=== PATIENT | female | born 1995 | race Caucasian/White ===

== ENCOUNTER 2021-10-01 20:14 | Emergency (ER) | payer OTHER ==
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
[2021-10-01] MEDS ORDERED: TYLENOL 325 MG PO ONE (20:50)
[2021-10-01] MEDS ORDERED: TYLENOL 325 MG ONE (20:52)
[2021-10-01] MEDS ORDERED: NORCO 5/325 MG ONE (20:54)
[2021-10-01] MEDS ORDERED: NORCO 5/325 MG PO ONE (20:54)
[2021-10-01] MEDS ORDERED: Tessalon Perles 100 MG PO ONE ×2 (22:07→22:08)
[2021-10-01 22:08] VITALS: BP 109/55; PULSE 117
[2021-10-01 22:18] VITALS: O2SAT 97
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
== END 2021-10-01 22:34 | disposition home or self-care (01) ==
LOC: ED 20:14
DX: S00.83XA Contusion of other part of head, initial encounter (principal); S20.214A Contusion of middle front wall of thorax, initial encounter; V48.5XXA Car driver injured in noncollision transport accident in traffic accident, initial encounter; R59.1 Generalized enlarged lymph nodes; R05.3 Chronic cough; U09.9 Post COVID-19 condition, unspecified; R51.9 Headache, unspecified; R07.9 Chest pain, unspecified; Z79.899 Other long term (current) drug therapy
CPT/HCPCS: 70450; 71046; 72125; 99285; A9270-GY

== ENCOUNTER 2021-10-02 00:12 | Emergency (ER) | payer OTHER ==
[2021-10-02] MEDS ORDERED: Sodium Chloride 0.9% 1000 ML 1,000 ML IV STA (00:37)
[2021-10-02] MEDS ORDERED: Sodium Chloride 0.9% 1000 ML 1,000 ML ONE (00:42)
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
[2021-10-02 00:52] LABS: Hematocrit 27.2 % (35-47); Hemoglobin 8.1 gm/dl (12.0-16.0); Mean Cell Volume 85.8 fl (78-100); Mean Corpuscular Hemoglobin 25.6 pg (26-32); Mean Corpuscular Hgb Concent. 29.8 g/dl (32-36); Mean Platelet Volume 9.1 fl (7.5-11.0); Platelet Count 460 K/mm3 (150-450); Red Blood Count 3.17 M/mm3 (4.1-5.4); Red Cell Distribution Width 19.1 % (11.5-14.0)
[2021-10-02 01:01] LABS: White Blood Count 28.3 K/mm3 (4.0-10.5)
[2021-10-02 01:10] LABS: ANION GAP 11.5 MEQ/L (5-15); BLOOD UREA NITROGEN 8 mg/dL (7-17); CHLORIDE 98 mmol/L (98-107); Calcium 8.3 mg/dL (8.4-10.2); Carbon Dioxide 27 mmol/L (22-30); Creatinine 1 0.92 mg/dL (0.52-1.04); EST GLOMERULAR FILTRATION RATE > 60.0 ML/MIN; Glucose 147 mg/dL (74-106); Potassium 3.8 mmol/L (3.5-5.1); SODIUM 133 mmol/L (137-145)
[2021-10-02] MEDS ORDERED: TORAdol 30 mg Injection IV ONE (01:20)
[2021-10-02] MEDS ORDERED: TORAdol 30 mg Injection ONE (01:22)
[2021-10-02 01:23] LABS: TROPONIN < 0.012 ng/mL (0.000-0.034)
[2021-10-02 01:54] LABS: BAND 8 % (0.0-2.0); Eosinophil 1 % (0.00-3.0); Hypochromia 1+; Lymphocytes 7 % (24-44); Monocyte 5 % (0.0-12.0); Neutrophils 79 % (36.0-66.0); Platelet Estimate NORMAL (NORMAL); Polychromasia 1+; Total Cells Counted 100; Toxic Granulation 1+
[2021-10-02 02:15] VITALS: O2SAT 95
[2021-10-02 03:13] VITALS: BP 100/45; PULSE 103
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
== END 2021-10-02 03:05 | disposition home or self-care (01) ==
LOC: ED 00:12
DX: R55 Syncope and collapse (principal); R05.3 Chronic cough; D72.829 Elevated white blood cell count, unspecified; G47.30 Sleep apnea, unspecified; S22.32XA Fracture of one rib, left side, initial encounter for closed fracture; V48.5XXA Car driver injured in noncollision transport accident in traffic accident, initial encounter; Z86.16 Personal history of COVID-19; Z79.899 Other long term (current) drug therapy; Z79.891 Long term (current) use of opiate analgesic
CPT/HCPCS: 36000; 36415; 71260; 80048; 84484; 84703; 85025; 85379; 93005; 96360; 96374; 99284; J1885

== ENCOUNTER 2022-02-14 15:12 | Emergency (ER) | payer OTHER ==
--- NOTE | 2022-02-14 15:15 | ERPHSYRPT ---
- History of Present Illness Time Seen by Provider: 02/14/22 15:14 Source: patient Exam Limitations: no limitations Physician History: This is a 27-year-old white female who has Hodgkin's lymphoma. She receives chemotherapy through a port tomorrow. Her concern, is that she might be dehydrated. They are having trouble accessing her port and therefore she is here to receive a liter of normal saline intravenously. Patient has no chest pain. She has no shortness of breath. She has not been vomiting. She has not had any diarrhea. Her oral intake is not the best. Timing/Duration: today Severity: mild Associated Symptoms: loss of appetite Allergies/Adverse Reactions: amoxicillin Allergy (Intermediate, Verified 02/14/22 15:45) Rash cefaclor [From Ceclor] Allergy (Intermediate, Verified 02/14/22 15:45) Rash Home Medications: AMITRIPTYLINE HCL 50 mg Tab [AMITRIPTYLINE HCL 50 mg Tablet] 50 mg PO HS 10/01/21 [History] Buspirone HCl 15 mg PO BID 10/01/21 [History] Escitalopram Oxalate [Lexapro] 30 mg PO DAILY 10/01/21 [History] Gabapentin [Neurontin] 800 mg PO BID 10/01/21 [History] Montelukast Sodium 10 mg [Singulair 10 MG] 10 mg PO DAILY 10/01/21 [History] Hx Tetanus, Diphtheria Vaccination/Date Given: Yes (2020) Hx Influenza Vaccination/Date Given: No Hx Pneumococcal Vaccination/Date Given: No Travel Risk - International Travel Have you traveled outside of the country in past 3 weeks: No - Coronavirus Screening Are you exhibiting any of the following symptoms?: No - Vaccine Status Have you recieved a Covid-19 vaccination: No 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: 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 - Vaccination Dates Date of 2cond Vaccination (if applicable): mar 2021 - Review of Systems Constitutional: No Symptoms Eyes: No Symptoms Ears, Nose, & Throat: No Symptoms Respiratory: No Symptoms Cardiac: No Symptoms Abdominal/Gastrointestinal: Appetite Changes Genitourinary Symptoms: No Symptoms Musculoskeletal: No Symptoms Skin: No Symptoms Neurological: No Symptoms Psychological: No Symptoms Endocrine: No Symptoms Hematologic/Lymphatic: No Symptoms Immunological/Allergic: No Symptoms All Other Systems: Reviewed and Negative - Past Medical History Pertinent Past Medical History: Yes Psycho-Social History: Anxiety Other Medical History: testing for hodgkins lymphoma. exzema, insulin resistant - Past Surgical History Past Surgical History: Yes Other Surgical History: cyst removal - Social History Smoking Status: Never smoker Exposure to second hand smoke: No Drug Use: none Patient Lives Alone: No - Nursing Vital Signs Nursing Vital Signs: Initial Vital Signs Temperature 97.0 F 02/14/22 15:26 Pulse Rate 97 H 02/14/22 15:26 Respiratory Rate 18 02/14/22 15:26 Blood Pressure 115/58 02/14/22 15:26 O2 Sat by Pulse Oximetry 100 02/14/22 15:26 Pain Scale Pain Intensity 7 - Physical Exam General Appearance: no apparent distress, alert Eye Exam: PERRL/EOMI, eyes nml inspection Ears, Nose, Throat Exam: normal ENT inspection, dry mucous membranes Neck Exam: normal inspection, non-tender, supple, full range of motion Respiratory Exam: normal breath sounds, lungs clear, airway intact, No chest tenderness, No respiratory distress Cardiovascular Exam: regular rate/rhythm, normal heart sounds, normal peripheral pulses Gastrointestinal/Abdomen Exam: soft, normal bowel sounds, No tenderness Pelvic Exam: not done Rectal Exam: not done Back Exam: normal inspection, normal range of motion, No CVA tenderness Extremity Exam: normal inspection, normal range of motion, pelvis stable Neurologic Exam: alert, oriented x 3, cooperative, 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9% 1000 Ml IV 02/14/22 17:12 999 mls/hr .Q1H1M STA Administration Discontinued Medications Generic Name Dose Route Start Last Admin Trade Name Freq PRN Reason Stop Dose Admin Sodium Chloride Confirm 02/14/22 16:15 Sodium Chloride 0.9% 1000 Ml Administered 02/14/22 16:16 Dose 1,000 mls @ ud .ROUTE .STK-MED ONE - Progress Progress: improved Counseled pt/family regarding: lab results, diagnosis, need for follow-up - Departure Departure Disposition: Home Clinical Impression: Mild dehydration Condition: Stable Critical Care Time: No Referrals: RAJ CHANEY MD [Primary Care Provider] - Follow up/PCP as directed Additional Instructions: Drink plenty of fluids. Take your medication as prescribed. Keep your chemotherapy infusion appointment tomorrow
[2022-02-14] MEDS ORDERED: Sodium Chloride 0.9% 1000 ML 1,000 ML IV STA (16:12)
[2022-02-14] MEDS ORDERED: Sodium Chloride 0.9% 1000 ML 1,000 ML ONE (16:15)
[2022-02-14 16:35] LABS: ANION GAP 11.8 MEQ/L (5-15); BLOOD UREA NITROGEN 18 mg/dL (7-17); CHLORIDE 101 mmol/L (98-107); Calcium 9.3 mg/dL (8.4-10.2); Carbon Dioxide 27 mmol/L (22-30); Creatinine 1 0.67 mg/dL (0.52-1.04); EST GLOMERULAR FILTRATION RATE > 60.0 ML/MIN; Glucose 87 mg/dL (74-106); Potassium 4.3 mmol/L (3.5-5.1); SODIUM 136 mmol/L (137-145)
[2022-02-14 17:50] VITALS: BP 125/74; PULSE 92; O2SAT 99
== END 2022-02-14 17:53 | disposition home or self-care (01) ==
LOC: ED 15:12
DX: E86.0 Dehydration (principal); C81.90 Hodgkin lymphoma, unspecified, unspecified site; Z79.899 Other long term (current) drug therapy
CPT/HCPCS: 36000; 36415; 80048; 96360; 99284

== ENCOUNTER 2022-05-05 09:58 | Emergency (ER) | payer OTHER ==
--- NOTE | 2022-05-05 11:25 | ERPHSYRPT ---
- History of Present Illness Source: patient Exam Limitations: no limitations Patient Subjective Stated Complaint: C/O dizziness that resulted in a fall this morning. Patient states that she has been having dizzy spells since approx January but today is the first day that she has fallen related to the dizziness. Patient states that the room is spinning when questioned about the spinning. Triage Nursing Assessment: Patient ambulated back to ED with a slow gait. Patient did become slightly dizzy when guided back to ED. No SOB. Noted small spots to body when assessing skin that patient indicates are from her chemotherapy. Noted ulcer to great toe as well. Physician History: 27 yo wf who had her last chemo treatment for Hodgkins disease last week presents s/p fall x2 today due to being lightheaded. Pt states that she has been lightheaded x 8months. She denies LOC but does have a headache. Pt has chronic dyspnea upon exertion but denies cough/chest pain/fever. She has no focal weakness and denies any acute injury. Occurred: this morning Reason for Fall: lightheaded Injuries/Pain Location: head (Has a BARRY) Loss of Consciousness: no loss of consciousness Quality: aching Severity of Pain-Max: mild Severity of Pain-Current: mild Modifying Factors: Improves With: nothing Associated Symptoms (Fall): denies symptoms, shortness of breath Allergies/Adverse Reactions: amoxicillin Allergy (Intermediate, Verified 05/05/22 10:37) Rash cefaclor [From Ceclor] Allergy (Intermediate, Verified 05/05/22 10:37) Rash Home Medications: Amitriptyline HCl 25 mg [Amitriptyline 25 mg Tablet] 100 mg PO DAILY 05/05/22 [History] Aspirin EC 81 mg [Ecotrin 81 mg] 1 tab PO DAILY 05/05/22 [History] Buspirone HCl 5 mg [Buspar 5 mg] 15 mg PO BID 05/05/22 [History] Escitalopram Oxalate [Lexapro] 20 mg PO DAILY 05/05/22 [History] Gabapentin [Neurontin ] 1,600 mg PO HS 05/05/22 [History] hydroCHLOROthiazide [Hydrochlorothiazide] 1 tab PO DAILY 05/05/22 [History] Hx Tetanus, Diphtheria Vaccination/Date Given: Yes Hx Influenza Vaccination/Date Given: No Hx Pneumococcal Vaccination/Date Given: No Immunizations Up to Date: Yes Travel Risk - International Travel Have you traveled outside of the country in past 3 weeks: No - Coronavirus Screening Are you exhibiting any of the following symptoms?: No Close contact with a COVID-19 positive Pt in past 14-21 Days: No - Vaccine Status Have you recieved a Covid-19 vaccination: No International Guest Coordinator: Moderna - Vaccination Dates Date of 2cond Vaccination (if applicable): mar 2021 - Review of Systems Constitutional: No Symptoms, Malaise Eyes: No Symptoms Ears, Nose, & Throat: No Symptoms Respiratory: No Symptoms, Dyspnea on Exertion (LENTZ) Cardiac: No Symptoms Abdominal/Gastrointestinal: No Symptoms Genitourinary Symptoms: No Symptoms Musculoskeletal: No Symptoms Skin: No Symptoms Neurological: No Symptoms Psychological: No Symptoms Endocrine: No Symptoms Hematologic/Lymphatic: No Symptoms Immunological/Allergic: No Symptoms - Past Medical History Pertinent Past Medical History: Yes Respiratory History: COPD Psycho-Social History: Anxiety, Depression Other Medical History: Hodgkins Lymphoma in remission since March 2022 - Past Surgical History Past Surgical History: Yes Other Surgical History: cyst removal, port placement X 3 - Social History Smoking Status: Never smoker Exposure to second hand smoke: No Drug Use: none Patient Lives Alone: No Significant Family History: no pertinent family hx - Female History Hx Last Menstrual Period: 4 months ago Hx Now: No - Nursing Vital Signs Nursing Vital Signs: Initial Vital Signs Temperature 97.6 F 05/05/22 10:38 Pulse Rate 90 05/05/22 10:38 Respiratory Rate 20 05/05/22 10:38 Blood Pressure 122/77 05/05/22 10:38 O2 Sat by Pulse Oximetry 96 05/05/22 10:38 Pain Scale Pain Intensity 0 WNL - Vini Coma Score Best Eye Response (Vini): (4) open spontaneously Best Verbal Response ([place]): (5) oriented Best Motor Response (Vini): (6) obeys commands [place] Total: 15 - Physical Exam General Appearance: no apparent distress Head Injury: no evidence of injury Eye Exam: PERRL/EOMI, eyes nml inspection ENT Exam: airway nml, No evidence of ENT injury Neck Exam: supple, trachea midline, full range of motion, normal alignment, normal inspection, No focal neuro deficit Respiratory/Chest Exam: normal breath sounds, No respiratory distress Cardiovascular Exam: normal heart sounds, regular rate/rhythm, normal peripheral pulses, No murmur Gastrointestinal Exam: soft, normal bowel sounds, No tenderness Back Exam: normal inspection, normal range of motion, vertebral tenderness (No T/L-spine TTP), No CVA tenderness Extremity Exam: normal inspection, normal range of motion, capillary refill <3 sec, pelvis stable Peripheral Pulses: carotid (R): 2+, carotid (L): 2+ Neurologic Exam: alert, oriented x 3, cooperative, clinical nurse specialist II-XII nml as tested, normal mood/affect, nml cerebellar function, nml station & gait, sensation nml, No motor deficits, No sensory deficit Skin Exam: normal color, warm, dry, No rash SpO2 Interpretation: normal SpO2: 96 O2 Delivery: Room Air - Course Nursing assessment & vital signs reviewed: Yes EKG Interpreted by Me: RATE (NSR/Rate79/Normal QT-QTc/No acute ST segment changes) - CT Exams Head CT Interpretation: Discussed w/radiologist (CT head neg) Chest CT Interpretation: Discussed w/radiologist (No PE/Healing sternal Fx/RUIZ) Ordered Tests: Active Orders 24 hr Category Date Time Status EKG-ER Only STAT Care 05/05/22 11:17 Completed CHEST WITH CONTRAST [CT] Stat Exams 05/05/22 12:40 Completed HEAD WITHOUT CONTRAST [CT] Stat Exams 05/05/22 11:19 Completed CBC W DIFF Stat Lab 05/05/22 11:17 Results CMP Stat Lab 05/05/22 11:40 Completed D-DIMER QUANTITATIVE Stat Lab 05/05/22 11:40 Completed HCG QUALITATIVE,SERUM Stat Lab 05/05/22 11:40 Completed Lactic Acid Stat Lab 05/05/22 11:35 Completed Manual Differential NC Stat Lab 05/05/22 11:17 Results PROTIME WITH INR Stat Lab 05/05/22 11:40 Completed PTT Stat Lab 05/05/22 11:40 Completed Pathologist Review Stat Lab 05/05/22 11:17 Results TROPONIN Q4H Lab 05/05/22 11:40 Completed TROPONIN Q4H Lab 05/05/22 14:15 Completed TROPONIN Q4H Lab 05/05/22 17:10 Completed UA W/RFX CULTURE Stat Lab 05/05/22 11:59 Completed Medication Summary Discontinued Medications Generic Name Dose Route Start Last Admin Trade Name Freq PRN Reason Stop Dose Admin Sodium Chloride 1,000 mls @ 999 mls/hr 05/05/22 12:56 05/05/22 14:17 Sodium Chloride 0.9% 1000 Ml IV 05/05/22 13:56 Infused .Q1H1M STA Infusion Sodium Chloride Confirm 05/05/22 13:05 Sodium Chloride 0.9% 1000 Ml Administered 05/05/22 13:06 Dose 1,000 mls @ ud .ROUTE .STK-MED ONE Sodium Chloride 1,000 mls @ 999 mls/hr 05/05/22 15:33 05/05/22 16:50 Sodium Chloride 0.9% 1000 Ml IV 05/05/22 16:33 Infused .Q1H1M STA Infusion Sodium Chloride Confirm 05/05/22 15:43 Sodium Chloride 0.9% 1000 Ml Administered 05/05/22 15:44 Dose 1,000 mls @ ud .ROUTE .STK-MED ONE Lab/Rad Data: Laboratory Result Diagrams 05/05/22 11:17 05/05/22 11:40 Laboratory Results 05/05/22 05/05/22 05/05/22 Range/Units 17:10 14:15 11:59 WBC (4.0-10.5) x10^3/uL RBC (4.1-5.4) x10^6/uL Hgb (12.0-16.0) g/dL Hct (35-47) % MCV (78-100) fL MCH (26-32) pg MCHC (32-36) g/dL RDW (11.5-14.0) % Plt Count (150-450) x10^3/uL MPV (7.5-11.0) fL Gran % (36.0-66.0) % Immature Gran % (Auto) (0.00-0.4) % Nucleat RBC Rel Count (0.00-0.1) % Eos # (Auto) (0-0.5) x10^3/uL Immature Gran # (Auto) (0.00-0.03) x10^3u/L Absolute Lymphs (auto) (1.0-4.6) x10^3/uL Absolute Monos (auto) (0.0-1.3) x10^3/uL Absolute Nucleated RBC (0.00-0.01) x10^3u/L Lymphocytes % (24.0-44.0) % Monocytes % (0.0-12.0) % Eosinophils % (0.00-5.0) % Basophils % (0.0-0.4) % Absolute Granulocytes (1.4-6.9) x10^3/uL Segmented Neutrophils (36.0-66.0) % Band Neutrophils (0.0-2.0) % Lymphocytes (Manual) (24-44) % Monocytes (Manual) (0.0-12.0) % Basophils # (0-0.4) x10^3/uL Metamyelocytes % Myelocytes % Nucleated RBCs % Blast Cells % Hypochromia Toxic Granulation Basophilic Stippling Anisocytosis Smear Path Review PT (9.4-12.5) SECONDS INR (0.8-3.0) APTT (25.1-36.5) SECONDS D-Dimer (0.0-0.50) mg/L Sodium (137-145) mmol/L Potassium (3.5-5.1) mmol/L Chloride (98-107) mmol/L Carbon Dioxide (22-30) mmol/L Anion Gap (5-15) MEQ/L BUN (7-17) mg/dL Creatinine (0.52-1.04) mg/dL Estimated GFR ML/MIN Glucose (74-106) mg/dL Lactic Acid (0.4-2.0) Calcium (8.4-10.2) mg/dL Total Bilirubin (0.2-1.3) mg/dL AST (14-36) U/L ALT (0-35) U/L Alkaline Phosphatase (38-126) U/L Troponin I 0.058 H* 0.064 H* (0.000-0.034) ng/mL Serum Total Protein (6.3-8.2) g/dL Albumin (3.5-5.0) g/dL Serum , Qual (Negative) Urinalys Dipstick Clnc MAIN LAB Urine Color YELLOW (YELLOW) Urine Appearance CLEAR (CLEAR) Urine pH 6.5 (5-6) Ur Specific [place] 1.020 (1.005-1.025) POC Urine Protein Conf NEGATIVE (Negative) Urine Ketones NEGATIVE (NEGATIVE) Urine Nitrite NEGATIVE (NEGATIVE) Urine Bilirubin NEGATIVE (NEGATIVE) Urine Urobilinogen 0.2 (0-1) mg/dL Urine Leukocytes NEGATIVE (NEGATIVE) Urine WBC (Auto) 0-2 (0-5) /HPF Urine RBC (Auto) NONE (0-2) /HPF U Epithel Cells (Auto) NONE (FEW) /HPF Urine Bacteria (Auto) RARE (NEGATIVE) /HPF Urine RBC NEGATIVE (0-5) Myles/ul Urine Mucus (Auto) SLIGHT (NEGATIVE) /HPF Ur Culture Indicated? NO Urine Glucose NEGATIVE (NEGATIVE) mg/dL 05/05/22 05/05/22 05/05/22 Range/Units 11:40 11:40 11:40 WBC (4.0-10.5) x10^3/uL RBC (4.1-5.4) x10^6/uL Hgb (12.0-16.0) g/dL Hct (35-47) % MCV (78-100) fL MCH (26-32) pg MCHC (32-36) g/dL RDW (11.5-14.0) % Plt Count (150-450) x10^3/uL MPV (7.5-11.0) fL Gran % (36.0-66.0) % Immature Gran % (Auto) (0.00-0.4) % Nucleat RBC Rel Count (0.00-0.1) % Eos # (Auto) (0-0.5) x10^3/uL Immature Gran # (Auto) (0.00-0.03) x10^3u/L Absolute Lymphs (auto) (1.0-4.6) x10^3/uL Absolute Monos (auto) (0.0-1.3) x10^3/uL Absolute Nucleated RBC (0.00-0.01) x10^3u/L Lymphocytes % (24.0-44.0) % Monocytes % (0.0-12.0) % Eosinophils % (0.00-5.0) % Basophils % (0.0-0.4) % Absolute Granulocytes (1.4-6.9) x10^3/uL Segmented Neutrophils (36.0-66.0) % Band Neutrophils (0.0-2.0) % Lymphocytes (Manual) (24-44) % Monocytes (Manual) (0.0-12.0) % Basophils # (0-0.4) x10^3/uL Metamyelocytes % Myelocytes % Nucleated RBCs % Blast Cells % Hypochromia Toxic Granulation Basophilic Stippling Anisocytosis Smear Path Review PT 10.4 (9.4-12.5) SECONDS INR 0.98 (0.8-3.0) APTT 21.5 L (25.1-36.5) SECONDS D-Dimer 0.73 H* (0.0-0.50) mg/L Sodium (137-145) mmol/L Potassium (3.5-5.1) mmol/L Chloride (98-107) mmol/L Carbon Dioxide (22-30) mmol/L Anion Gap (5-15) MEQ/L BUN (7-17) mg/dL Creatinine (0.52-1.04) mg/dL Estimated GFR ML/MIN Glucose (74-106) mg/dL Lactic Acid (0.4-2.0) Calcium (8.4-10.2) mg/dL Total Bilirubin (0.2-1.3) mg/dL AST (14-36) U/L ALT (0-35) U/L Alkaline Phosphatase (38-126) U/L Troponin I 0.062 H* (0.000-0.034) ng/mL Serum Total Protein (6.3-8.2) g/dL Albumin (3.5-5.0) g/dL Serum , Qual NEGATIVE (Negative) Urinalys Dipstick Clnc Urine Color (YELLOW) Urine Appearance (CLEAR) Urine pH (5-6) Ur Specific [place] (1.005-1.025) POC Urine Protein Conf (Negative) Urine Ketones (NEGATIVE) Urine Nitrite (NEGATIVE) Urine Bilirubin (NEGATIVE) Urine Urobilinogen (0-1) mg/dL Urine Leukocytes (NEGATIVE) Urine WBC (Auto) (0-5) /HPF Urine RBC (Auto) (0-2) /HPF U Epithel Cells (Auto) (FEW) /HPF Urine Bacteria (Auto) (NEGATIVE) /HPF Urine RBC (0-5) Myles/ul Urine Mucus (Auto) (NEGATIVE) /HPF Ur Culture Indicated? Urine Glucose (NEGATIVE) mg/dL 05/05/22 05/05/22 05/05/22 Range/Units 11:40 11:35 11:17 WBC 37.2 H* (4.0-10.5) x10^3/uL RBC 2.95 L (4.1-5.4) x10^6/uL Hgb 8.7 L (12.0-16.0) g/dL Hct 28.3 L (35-47) % MCV 95.9 (78-100) fL MCH 29.5 (26-32) pg MCHC 30.7 L (32-36) g/dL RDW 21.3 H (11.5-14.0) % Plt Count 140 L (150-450) x10^3/uL MPV 11.2 H (7.5-11.0) fL Gran % 68.0 H (36.0-66.0) % Immature Gran % (Auto) 23.7 H (0.00-0.4) % Nucleat RBC Rel Count 0.9 H (0.00-0.1) % Eos # (Auto) 0 (0-0.5) x10^3/uL Immature Gran # (Auto) 8.82 H (0.00-0.03) x10^3u/L Absolute Lymphs (auto) 1.10 (1.0-4.6) x10^3/uL Absolute Monos (auto) 1.92 H (0.0-1.3) x10^3/uL Absolute Nucleated RBC 0.34 H (0.00-0.01) x10^3u/L Lymphocytes % 3.0 L (24.0-44.0) % Monocytes % 5.2 (0.0-12.0) % Eosinophils % 0.0 (0.00-5.0) % Basophils % 0.1 (0.0-0.4) % Absolute Granulocytes 25.30 H (1.4-6.9) x10^3/uL Segmented Neutrophils 74 H (36.0-66.0) % Band Neutrophils 8 H (0.0-2.0) % Lymphocytes (Manual) 9 L (24-44) % Monocytes (Manual) 4 (0.0-12.0) % Basophils # 0.03 (0-0.4) x10^3/uL Metamyelocytes 2 % Myelocytes 1 % Nucleated RBCs 2 % Blast Cells 2 % Hypochromia 1+ Toxic Granulation 1+ Basophilic Stippling 1+ Anisocytosis 3+ Smear Path Review Pending PT (9.4-12.5) SECONDS INR (0.8-3.0) APTT (25.1-36.5) SECONDS D-Dimer (0.0-0.50) mg/L Sodium 137 (137-145) mmol/L Potassium 4.1 (3.5-5.1) mmol/L Chloride 99 (98-107) mmol/L Carbon Dioxide 35 H (22-30) mmol/L Anion Gap 7.0 (5-15) MEQ/L BUN 23 H (7-17) mg/dL Creatinine 0.86 (0.52-1.04) mg/dL Estimated GFR > 60.0 ML/MIN Glucose 118 H (74-106) mg/dL Lactic Acid 1.3 (0.4-2.0) Calcium 9.3 (8.4-10.2) mg/dL Total Bilirubin 0.30 (0.2-1.3) mg/dL AST 23 (14-36) U/L ALT 25 (0-35) U/L Alkaline Phosphatase 129 H (38-126) U/L Troponin I (0.000-0.034) ng/mL Serum Total Protein 6.7 (6.3-8.2) g/dL Albumin 4.0 (3.5-5.0) g/dL Serum , Qual (Negative) Urinalys Dipstick Clnc Urine Color (YELLOW) Urine Appearance (CLEAR) Urine pH (5-6) Ur Specific [place] (1.005-1.025) POC Urine Protein Conf (Negative) Urine Ketones (NEGATIVE) Urine Nitrite (NEGATIVE) Urine Bilirubin (NEGATIVE) Urine Urobilinogen (0-1) mg/dL Urine Leukocytes (NEGATIVE) Urine WBC (Auto) (0-5) /HPF Urine RBC (Auto) (0-2) /HPF U Epithel Cells (Auto) (FEW) /HPF Urine Bacteria (Auto) (NEGATIVE) /HPF Urine RBC (0-5) Myles/ul Urine Mucus (Auto) (NEGATIVE) /HPF Ur Culture Indicated? Urine Glucose (NEGATIVE) mg/dL - Progress Progress: improved Progress Note: 05/05/22 18:[address] Paul, pt's oncologist, near-syncope most likely due to orthostatic hypotension due to pt's treatment. Leukocytosis due to prednisone treatment. 05/05/22 18:19 05/05/22 21:46 Pt w mildly elevated troponin but not elevating x3. Heart score 2. Counseled pt/family regarding: lab results, diagnosis, need for follow-up, rad results - Departure Departure Disposition: Home Clinical Impression: Near syncope Condition: Stable Critical Care Time: No Referrals: RAJ CHANEY MD [Primary Care Provider] - Follow up/PCP as directed Instructions: Syncope (Fainting) (DC) Additional Instructions: Follow up with Dr. Paul on Sunday Return to ER for chest pain, shortness of breath, focal weakness, or temperature greater than 100.5
[2022-05-05 11:38] LABS: Basophil (Absolute #) 0.03 x10^3/uL (0-0.4); Eosinophil (Absolute #) 0 x10^3/uL (0-0.5); Hematocrit 28.3 % (35-47); Hemoglobin 8.7 g/dL (12.0-16.0); Mean Cell Volume 95.9 fL (78-100); Mean Corpuscular Hemoglobin 29.5 pg (26-32); Mean Corpuscular Hgb Concent. 30.7 g/dL (32-36); Mean Platelet Volume 11.2 fL (7.5-11.0); Monocyte (Absolute #) 1.92 x10^3/uL (0.0-1.3); Monocytes % 5.2 % (0.0-12.0); Platelet Count 140 x10^3/uL (150-450); Red Blood Count 2.95 x10^6/uL (4.1-5.4); Red Cell Distribution Width 21.3 % (11.5-14.0)
[2022-05-05 11:46] LABS: White Blood Count 37.2 x10^3/uL (4.0-10.5)
[2022-05-05 11:52] LABS: ALKALINE PHOSPHATASE 129 U/L (38-126); BLOOD UREA NITROGEN 23 mg/dL (7-17); CHLORIDE 99 mmol/L (98-107); Calcium 9.3 mg/dL (8.4-10.2); Carbon Dioxide 35 mmol/L (22-30); Creatinine 1 0.86 mg/dL (0.52-1.04); EST GLOMERULAR FILTRATION RATE > 60.0 ML/MIN; Glucose 118 mg/dL (74-106); Potassium 4.1 mmol/L (3.5-5.1); SGOT/AST 23 U/L (14-36); SGPT/ALT 25 U/L (0-35); SODIUM 137 mmol/L (137-145); Total Protein 6.7 g/dL (6.3-8.2)
[2022-05-05 12:05] LABS: INR 0.98 (0.8-3.0); PROTIME 10.4 SECONDS (9.4-12.5); PTT 21.5 SECONDS (25.1-36.5)
[2022-05-05 12:08] LABS: D-DIMER QUANTITATIVE 0.73 mg/L (0.0-0.50)
[2022-05-05 12:31] LABS: Appearance CLEAR (CLEAR); Bilirubin NEGATIVE (NEGATIVE); Glucose NEGATIVE (NEGATIVE); Ketones NEGATIVE (NEGATIVE); Ph 6.5 (5-6); Protein,Urine Dip NEGATIVE (Negative); RBC NEGATIVE Ery/ul (0-5); Urobilinogen 0.2 mg/dL (0-1)
[2022-05-05 12:32] LABS: Dipstick done @ ? MAIN LAB; Nitrite NEGATIVE (NEGATIVE)
[2022-05-05 12:34] LABS: Bacteria RARE /HPF (NEGATIVE); Mucus SLIGHT /HPF (NEGATIVE); WBC 0-2 /HPF (0-5)
[2022-05-05 12:39] LABS: Urine Cultured Indicated? NO
[2022-05-05] MEDS ORDERED: Sodium Chloride 0.9% 1000 ML 1,000 ML IV STA ×2 (12:56→15:33)
[2022-05-05] MEDS ORDERED: Sodium Chloride 0.9% 1000 ML 1,000 ML ONE ×2 (13:05→15:43)
--- NOTE | 2022-05-05 13:50 | XRAY ---
Indication: Syncope. Fall. History of Hodgkin's lymphoma. Multiple contiguous images obtained through the head without contrast. Comparison: October 01, 2021 Normal appearing brain parenchyma, ventricles, and bony calvarium. Visualized paranasal sinuses and mastoid air cells are clear. Impression: Continued normal CT head without contrast exam.
--- NOTE | 2022-05-05 13:54 | XRAY ---
Indication: Short of breath. Syncope. Elevated d-dimer. History Hodgkin's lymphoma. Multiple contiguous axial images obtained through the chest using 100 cc Isovue 370 contrast and PE protocol. Comparison: October 02, 2021 Good opacification of the pulmonary arteries to include the lobar and segmental branches. No pulmonary embolus. Heart not enlarged with new right Port-A-Cath. Aorta is normal in course and caliber. Previous mediastinal/hilar lymphadenopathy has cleared. No pathologic lymphadenopathy. Lungs demonstrates minimal bilateral dependent atelectasis. No suspicious pulmonary mass, infiltrate, or effusion. Bony thorax demonstrates new healing sternal fracture. Limited upper abdomen again there is is mild fatty liver and 14 cm splenomegaly. Impression: 1. Continued negative pulmonary embolus. No new/acute cardiopulmonary abnormalities. 2. New healing sternal fracture. 3. Again incidental fatty liver and splenomegaly.
[2022-05-05 14:56] LABS: BAND 8 % (0.0-2.0); Lymphocytes 9 % (24-44); Metamyelocyte 2 %; Monocyte 4 % (0.0-12.0); Myelocyte 1 %; Total Cells Counted 100
[2022-05-05 14:57] LABS: Nucleated Red Blood Cell 2 %
[2022-05-05 15:00] LABS: Basophilic Stippling 1+
[2022-05-05 15:01] LABS: ANISOCYTOSIS 3+; Hypochromia 1+; Toxic Granulation 1+
[2022-05-05 18:37] VITALS: BP 118/74; PULSE 90
[2022-05-05 21:48] VITALS: O2SAT 96
== END 2022-05-05 18:37 | disposition home or self-care (01) ==
LOC: ED 09:58
DX: R55 Syncope and collapse (principal); R42 Dizziness and giddiness; R51.9 Headache, unspecified; J44.9 Chronic obstructive pulmonary disease, unspecified; Z79.899 Other long term (current) drug therapy
CPT/HCPCS: 36000; 36415; 70450; 71260; 80053; 81015; 83605; 84484; 84703; 85025; 85379; 85610; 85730; 93005; 96360; 99284

== ENCOUNTER 2023-01-12 14:14 | Emergency (ER) | payer OTHER ==
--- NOTE | 2023-01-12 14:18 | ERPHSYRPT ---
- History of Present Illness Time Seen by Provider: 01/12/23 14:18 Source: patient Exam Limitations: no limitations Physician History: This is a 27-year-old obese white female who has a history of Hodgkin's disease that is in remission since March 2022. In the last week, the patient has noticed multiple episodes of loose stools and lower abdominal pain and cramping. In addition, the patient is concerned because she feels hot and has woken up in the middle the night with night sweats. She is also had other similar symptoms that she had when she was diagnosed with Hodgkin's disease and is obviously concerned about recurrence. She has not been exposed to individuals with similar symptoms or who have been diagnosed with flus. She denies flank pain. She denies cough. She denies shortness of breath. Patient does have a history of COPD, anxiety, depression and diabetes. Timing/Duration: week(s) (1) Cough Quality/Degree: no cough Possible Cause: no prior episodes (Since March 2022 when she was in remission.) Associated Symptoms: other (Subjective fevers and night sweats) Allergies/Adverse Reactions: amoxicillin Allergy (Intermediate, Verified 01/12/23 14:26) Rash cefaclor [From Ceclor] Allergy (Intermediate, Verified 01/12/23 14:26) Rash Home Medications: Amitriptyline HCl 25 mg [Amitriptyline 25 mg Tablet] 100 mg PO DAILY 05/05/22 [History] Buspirone HCl 5 mg [Buspar 5 mg] 15 mg PO BID 05/05/22 [History] Bupropion HCl Xl 150 mg [Wellbutrin XL 150 MG] 450 mg PO DAILY 01/12/23 [History] Citalopram Hydrobromide [Celexa] 40 mg PO DAILY 01/12/23 [History] Lisdexamfetamine Dimesylate [Vyvanse] 50 mg PO DAILY 01/12/23 [History] Metformin HCl 500 mg [Glucophage 500 MG] 500 mg PO DAILY 01/12/23 [History] Montelukast Sodium 10 mg [Singulair 10 MG] 10 mg PO DAILY 01/12/23 [History] Spironolactone 25 mg [Aldactone 25 MG] 25 mg PO DAILY 01/12/23 [History] Tirzepatide [Mounjaro] 12.5 mg SQ UD 01/12/23 [History] clonazePAM [Clonazepam] 0.5 mg PO BID 01/12/23 [History] Hx Tetanus, Diphtheria Vaccination/Date Given: Yes Hx Influenza Vaccination/Date Given: No Hx Pneumococcal Vaccination/Date Given: No Travel Risk - International Travel Have you traveled outside of the country in past 3 weeks: No - Coronavirus Screening Are you exhibiting any of the following symptoms?: Yes Symptoms: Fever, Vomiting/Diarrhea Close contact with a COVID-19 positive Pt in past 14-21 Days: No - Vaccine Status Have you recieved a Covid-19 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 - Vaccination Dates Date of 2cond Vaccination (if applicable): mar 2021 - Review of Systems Constitutional: Fever (Subjective), Night Sweats Eyes: No Symptoms Ears, Nose, & Throat: No Symptoms Respiratory: No Symptoms Cardiac: No Symptoms Abdominal/Gastrointestinal: Diarrhea, Other (Lower abdominal cramping) Genitourinary Symptoms: No Symptoms Musculoskeletal: No Symptoms Skin: No Symptoms Neurological: No Symptoms Psychological: No Symptoms Endocrine: No Symptoms Hematologic/Lymphatic: No Symptoms Immunological/Allergic: No Symptoms All Other Systems: Reviewed and Negative - Past Medical History Pertinent Past Medical History: Yes Respiratory History: COPD Psycho-Social History: Anxiety, Depression Other Medical History: Hodgkins Lymphoma in remission since March 2022 - Past Surgical History Past Surgical History: Yes Other Surgical History: cyst removal, port placement X 3 - Social History Smoking Status: Never smoker Exposure to second hand smoke: No Drug Use: none Patient Lives Alone: No Significant Family History: no pertinent family hx - Nursing Vital Signs Nursing Vital Signs: Initial Vital Signs Temperature 97.0 F 01/12/23 14:31 Pulse Rate 93 H 01/12/23 14:31 Respiratory Rate 16 01/12/23 14:31 Blood Pressure 115/74 01/12/23 14:31 O2 Sat by Pulse Oximetry 100 01/12/23 14:31 Pain Scale Pain Intensity 4 - Physical Exam General Appearance: no apparent distress, alert, anxiety, obese Eye Exam: PERRL/EOMI, eyes nml inspection Ears, Nose, Throat Exam: normal ENT inspection, moist mucous membranes Neck Exam: normal inspection, non-tender, supple, full range of motion Respiratory Exam: normal breath sounds, lungs clear, airway intact, No chest tenderness, No respiratory distress Cardiovascular Exam: regular rate/rhythm, normal heart sounds, normal peripheral pulses Gastrointestinal/Abdomen Exam: soft, normal bowel sounds, tenderness (Mild lower abdominal cramping), No mass, No guarding, No rebound Pelvic Exam: not done Rectal Exam: not done Back Exam: normal inspection, normal range of motion, No CVA tenderness, No vertebral tenderness Extremity Exam: normal inspection, normal range of motion, pelvis stable Neurologic Exam: alert, oriented x 3, 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, 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, normal mood/affect, nml cerebellar function, nml station & gait, sensation nml Skin Exam: normal color, warm, dry Lymphatic Exam: No adenopathy SpO2 Interpretation: normal O2 Delivery: Room Air - Course Nursing assessment & vital signs reviewed: Yes Ordered Tests: Active Orders 24 hr Category Date Time Status IV Insertion STAT Care 01/12/23 14:40 Active ABDOMEN AND PELVIS W/0 CONTRAS [CT] Stat Exams 01/12/23 14:41 Completed AMYLASE Stat Lab 01/12/23 14:53 Completed CBC W DIFF Stat Lab 01/12/23 14:40 Completed CMP Stat Lab 01/12/23 14:53 Completed HCG QUALITATIVE, SERUM Stat Lab 01/12/23 14:53 Completed LIPASE Stat Lab 01/12/23 14:53 Completed UA W/RFX UR CULTURE Stat Lab 01/12/23 16:09 Completed Medication Summary Discontinued Medications Generic Name Dose Route Start Last Admin Trade Name Frankie PRN Reason Stop Dose Admin Sodium Chloride 1,000 mls @ 999 mls/hr 01/12/23 14:40 01/12/23 16:20 Sodium Chloride 0.9% 1000 Ml IV 01/12/23 15:40 Infused .Q1H1M STA Infusion Sodium Chloride Confirm 01/12/23 14:44 Sodium Chloride 0.9% 1000 Ml Administered 01/12/23 14:45 Dose 1,000 mls @ ud .ROUTE .STK-MED ONE Lab/Rad Data: Laboratory Result Diagrams 01/12/23 14:40 01/12/23 14:53 Laboratory Results 01/12/23 01/12/23 01/12/23 Range/Units 16:09 14:53 14:53 WBC (4.0-10.5) x10^3/uL RBC (4.1-5.4) x10^6/uL Hgb (12.0-16.0) g/dL Hct (35-47) % MCV (78-100) fL MCH (26-32) pg MCHC (32-36) g/dL RDW (11.5-14.0) % Plt Count (150-450) x10^3/uL MPV (7.5-11.0) fL Gran % (36.0-66.0) % Immature Gran % (Auto) (0.00-0.4) % Nucleat RBC Rel Count (0.00-0.1) % Eos # (Auto) (0-0.5) x10^3/uL Immature Gran # (Auto) (0.00-0.03) x10^3u/L Absolute Lymphs (auto) (1.0-4.6) x10^3/uL Absolute Monos (auto) (0.0-1.3) x10^3/uL Absolute Nucleated RBC (0.00-0.01) x10^3u/L Lymphocytes % (24.0-44.0) % Monocytes % (0.0-12.0) % Eosinophils % (0.00-5.0) % Basophils % (0.0-0.4) % Absolute Granulocytes (1.4-6.9) x10^3/uL Basophils # (0-0.4) x10^3/uL Sodium (137-145) mmol/L Potassium (3.5-5.1) mmol/L Chloride (98-107) mmol/L Carbon Dioxide (22-30) mmol/L Anion Gap (5-15) MEQ/L BUN (7-17) mg/dL Creatinine (0.52-1.04) mg/dL Estimated GFR ML/MIN Glucose (74-106) mg/dL Calcium (8.4-10.2) mg/dL Total Bilirubin (0.2-1.3) mg/dL AST (14-36) U/L ALT (0-35) U/L Alkaline Phosphatase (38-126) U/L Serum Total Protein (6.3-8.2) g/dL Albumin (3.5-5.0) g/dL Amylase (30-110) U/L Lipase (23-300) U/L Serum HCG, Qual NEGATIVE (NEGATIVE) Urine Color Yellow (Yellow) Urine Appearance Clear (Clear) Urine pH 5.5 (4.6-8.0) Ur Specific [place] 1.010 (1.005-1.030) Urine Protein Negative (Negative) Urine Glucose (UA) Negative (Negative) mg/dL Urine Ketones Negative (Negative) Urine Blood Negative (Negative) Urine Nitrite Negative (Negative) Urine Bilirubin Negative (Negative) Urine Urobilinogen 0.2 (0.2) mg/dL Ur Leukocyte Esterase Negative (Negative) U Hyaline Cast (Auto) NONE SEEN (0-2) /LPF Urine Microscopic RBC 0-2 (0-5) /HPF Urine Microscopic WBC 0-2 (0-5) /HPF Ur Epithelial Cells None Seen (None Seen) /HPF Urine Bacteria None Seen (None Seen) /HPF Urine Culture Reflexed NO (NO) Influenza Type A Ag NEGATIVE (NEGATIVE) Influenza Type B Ag NEGATIVE (NEGATIVE) RSV (PCR) NEGATIVE (NEGATIVE) SARS-CoV-2 (PCR) NEGATIVE (NEGATIVE) 01/12/23 01/12/23 Range/Units 14:53 14:40 WBC 7.0 (4.0-10.5) x10^3/uL RBC 5.20 (4.1-5.4) x10^6/uL Hgb 14.9 (12.0-16.0) g/dL Hct 45.8 (35-47) % MCV 88.1 (78-100) fL MCH 28.7 (26-32) pg MCHC 32.5 (32-36) g/dL RDW 14.2 H (11.5-14.0) % Plt Count 251 (150-450) x10^3/uL MPV 10.0 (7.5-11.0) fL Gran % 73.9 H (36.0-66.0) % Immature Gran % (Auto) 0.1 (0.00-0.4) % Nucleat RBC Rel Count 0.0 (0.00-0.1) % Eos # (Auto) 0.20 (0-0.5) x10^3/uL Immature Gran # (Auto) 0.01 (0.00-0.03) x10^3u/L Absolute Lymphs (auto) 1.25 (1.0-4.6) x10^3/uL Absolute Monos (auto) 0.35 (0.0-1.3) x10^3/uL Absolute Nucleated RBC 0.00 (0.00-0.01) x10^3u/L Lymphocytes % 17.8 L (24.0-44.0) % Monocytes % 5.0 (0.0-12.0) % Eosinophils % 2.8 (0.00-5.0) % Basophils % 0.4 (0.0-0.4) % Absolute Granulocytes 5.19 (1.4-6.9) x10^3/uL Basophils # 0.03 (0-0.4) x10^3/uL Sodium 137 (137-145) mmol/L Potassium 3.8 (3.5-5.1) mmol/L Chloride 102 (98-107) mmol/L Carbon Dioxide 28 (22-30) mmol/L Anion Gap 10.8 (5-15) MEQ/L BUN 10 (7-17) mg/dL Creatinine 0.83 (0.52-1.04) mg/dL Estimated GFR > 60.0 ML/MIN Glucose 77 (74-106) mg/dL Calcium 8.9 (8.4-10.2) mg/dL Total Bilirubin 0.50 (0.2-1.3) mg/dL AST 26 (14-36) U/L ALT 21 (0-35) U/L Alkaline Phosphatase 134 H (38-126) U/L Serum Total Protein 8.1 (6.3-8.2) g/dL Albumin 4.1 (3.5-5.0) g/dL Amylase 50 (30-110) U/L Lipase 58 (23-300) U/L Serum HCG, Qual (NEGATIVE) Urine Color (Yellow) Urine Appearance (Clear) Urine pH (4.6-8.0) Ur Specific [place] (1.005-1.030) Urine Protein (Negative) Urine Glucose (UA) (Negative) mg/dL Urine Ketones (Negative) Urine Blood (Negative) Urine Nitrite (Negative) Urine Bilirubin (Negative) Urine Urobilinogen (0.2) mg/dL Ur Leukocyte Esterase (Negative) U Hyaline Cast (Auto) (0-2) /LPF Urine Microscopic RBC (0-5) /HPF Urine Microscopic WBC (0-5) /HPF Ur Epithelial Cells (None Seen) /HPF Urine Bacteria (None Seen) /HPF Urine Culture Reflexed (NO) Influenza Type A Ag (NEGATIVE) Influenza Type B Ag (NEGATIVE) RSV (PCR) (NEGATIVE) SARS-CoV-2 (PCR) (NEGATIVE) - Progress Progress: improved, re-examined Air Movement: good Progress Note: 01/12/23 16:23 CT scan of the abdomen pelvis without contrast was interpreted by the radiologist and the impression was reviewed by me. It is a negative study. There is no evidence of any acute intra-abdominal or intrapelvic abnormalities. This patient's medical issue is 1 of moderate complexity. The level complexity in the work-up performed is based on review of the patient's past medical history, review of the patient's medication list, review of the patient's drug allergy list, history of present illness and physical findings on examination. The work-up includes placement of an intravenous line, infusion of normal saline solution intravenously, CBC, CMP, urinalysis, amylase and lipase levels and a CAT scan of the abdomen pelvis without contrast. I reviewed the work-up results at this point and there is no evidence of any acute intra-abdominal or intrapelvic findings. There is no evidence of recurrence of her Hodgkin's d isease. I am awaiting the urinalysis. If there is a urinary tract infection we will place her on antibiotics. Otherwise, she will follow-up with her primary care provider for further evaluation and management. Blood Culture(s) Obtained: No Counseled pt/family regarding: lab results, diagnosis, rad results Medical Desision Making - Diagnostic Testing Diagnostic test were ordered, analyzed, and reviewed by me: Yes Radiological Interpretation: Reviewed by me, Teleradiologist Report - Risk of complications Low Risk: Low risk of morbidity from additional dx testing or treatment - Departure Departure Disposition: Home Clinical Impression: Abdominal cramping, Diarrhea Condition: Stable Critical Care Time: No Referrals: RAJ CHANEY MD [Primary Care Provider] - Follow up/PCP as directed Additional Instructions: Drink plenty of fluids. Call your primary care provider and your oncologist on 01/15/2023 for further evaluation and management. Return to the emergency department if symptoms worsen.
[2023-01-12] MEDS ORDERED: Sodium Chloride 0.9% 1000 ML 1,000 ML IV STA (14:40)
[2023-01-12] MEDS ORDERED: Sodium Chloride 0.9% 1000 ML 1,000 ML ONE (14:44)
[2023-01-12 14:54] LABS: Absolute Neutrophil Ct (ANC) 5.19 x10^3/uL (1.4-6.9); BASOPHIL % 0.4 % (0.0-0.4); Basophil (Absolute #) 0.03 x10^3/uL (0-0.4); Eosinophil % 2.8 % (0.00-5.0); Hematocrit 45.8 % (35-47); Hemoglobin 14.9 g/dL (12.0-16.0); IMMATURE GRAN # 0.01 x10^3u/L (0.00-0.03); IMMATURE GRAN % 0.1 % (0.00-0.4); Lymphocyte (Absolute #) 1.25 x10^3/uL (1.0-4.6); Lymphocytes % 17.8 % (24.0-44.0); Mean Cell Volume 88.1 fL (78-100); Mean Corpuscular Hemoglobin 28.7 pg (26-32); Mean Corpuscular Hgb Concent. 32.5 g/dL (32-36); Monocyte (Absolute #) 0.35 x10^3/uL (0.0-1.3); Neutrophil % 73.9 % (36.0-66.0); Platelet Count 251 x10^3/uL (150-450); Red Cell Distribution Width 14.2 % (11.5-14.0)
[2023-01-12 15:01] LABS: HCG SERUM TEST NEGATIVE (NEGATIVE)
[2023-01-12 15:07] LABS: ALBUMIN 4.1 g/dL (3.5-5.0); ALKALINE PHOSPHATASE 134 U/L (38-126); AMYLASE 50 U/L (30-110); ANION GAP 10.8 MEQ/L (5-15); BLOOD UREA NITROGEN 10 mg/dL (7-17); CHLORIDE 102 mmol/L (98-107); Calcium 8.9 mg/dL (8.4-10.2); Carbon Dioxide 28 mmol/L (22-30); Creatinine 1 0.83 mg/dL (0.52-1.04); EST GLOMERULAR FILTRATION RATE > 60.0 ML/MIN; Glucose 77 mg/dL (74-106); LIPASE 58 U/L (23-300); Potassium 3.8 mmol/L (3.5-5.1); SGOT/AST 26 U/L (14-36); SGPT/ALT 21 U/L (0-35); SODIUM 137 mmol/L (137-145); Total Protein 8.1 g/dL (6.3-8.2)
[2023-01-12 15:23] VITALS: PULSE 86
[2023-01-12 15:32] LABS: INFLUENZA A NEGATIVE (NEGATIVE); INFLUENZA B NEGATIVE (NEGATIVE); RESPIRATORY SYNCTIAL VIRUS NEGATIVE (NEGATIVE); SARS-CoV-2 Xpert Express NEGATIVE (NEGATIVE)
--- NOTE | 2023-01-12 15:38 | XRAY ---
Indication: Abdomen pain and diarrhea 1 week. History of Hodgkin's lymphoma. Multiple contiguous axial images obtained through the abdomen and pelvis without contrast. Comparison: None Lung bases are clear. Heart not enlarged. Noncontrasted stomach and bowel loops appear nonobstructed with normal appendix. No free fluid/air. Liver, gallbladder, pancreas, spleen, adrenal glands, kidneys, ureters, bladder, uterus, and aorta are unremarkable for noncontrast exam. Osseous structures intact. No ventral inguinal hernias pain Impression: CT abdomen/pelvis without contrast exam is negative.
[2023-01-12 16:35] LABS: Appearance Clear (Clear); Bacteria None Seen /HPF (None Seen); Bilirubin Negative (Negative); Blood Negative (Negative); Epithelial Cells None Seen /HPF (None Seen); Glucose, Urine Negative (Negative); Hyaline Casts NONE SEEN /LPF (0-2); Ketones Negative (Negative); Leukocyte Esterase Negative (Negative); Nitrite Negative (Negative); Ph 5.5 (4.6-8.0); Protein,Urine Dip Negative (Negative); RBC 0-2 /HPF (0-5); Urobilinogen 0.2 mg/dL (0.2); WBC 0-2 /HPF (0-5)
[2023-01-12 16:44] LABS: ADD URINE CULTURE? NO (NO)
[2023-01-12 17:21] VITALS: O2SAT 100
[2023-01-12 17:40] VITALS: BP 124/99
== END 2023-01-12 17:44 | disposition home or self-care (01) ==
LOC: ED 14:14
DX: R10.30 Lower abdominal pain, unspecified (principal); R19.7 Diarrhea, unspecified; E11.9 Type 2 diabetes mellitus without complications; Z79.84 Long term (current) use of oral hypoglycemic drugs; Z79.85 Long-term (current) use of injectable non-insulin antidiabetic drugs; Z79.899 Other long term (current) drug therapy
CPT/HCPCS: 0241U; 36000; 36415; 74176; 80053; 81001; 82150; 83690; 84703; 85025; 96360; 99284

== ENCOUNTER 2023-03-27 19:51 | Emergency (ER) | payer OTHER ==
[2023-03-27 20:09] VITALS: TEMP 97.4
[2023-03-27] MEDS ORDERED: Sodium Chloride 0.9% 1000 ML 1,000 ML IV STA (20:46)
[2023-03-27] MEDS ORDERED: Sodium Chloride 0.9% 1000 ML 1,000 ML ONE (21:03)
--- NOTE | 2023-03-27 21:07 | ERPHSYRPT ---
- History of Present Illness Time Seen by Provider: 03/27/23 21:03 Source: patient Exam Limitations: no limitations Patient Subjective Stated Complaint: pt states "I think I am dehydrated." Triage Nursing Assessment: pt ambulatory to bed by self with slow steady gait, pt alert and oriented x3, skin pwd, pt c/o diarrhea, nausea without vomiting and fatigue. pt states she had 2 episodes of diarrhea today, no blood in stool per patient, pt in currently 11 months in remission for stage 3 hodgkins lymphoma. pt afebrile at this time Physician History: Patient is a 28-year-old female with a history of stage III Hodgkin's lymphoma in remission for the last 11 months presents to our ED for evaluation of fatigue. Patient has been experiencing diarrhea over the past couple days and feels she may be dehydrated. Patient had 2 episodes of diarrhea today coupled with nausea. No active nausea at this time. No vomiting. Patient's symptoms are constant. No specific worsening or improving factors. Symptoms are moderate in intensity. Patient otherwise feels well. She voices no other complaints or concerns at this time. Portions of this note were created with voice recognition technology. There may be grammatical, spelling, punctuation or sound alike errors Timing/Duration: today Severity: moderate Modifying Factors: Improves With: nothing Associated Symptoms: nausea Allergies/Adverse Reactions: amoxicillin Allergy (Intermediate, Verified 03/27/23 20:02) Rash cefaclor [From Ceclor] Allergy (Intermediate, Verified 03/27/23 20:02) Rash Home Medications: Amitriptyline HCl 25 mg [Amitriptyline 25 mg Tablet] 100 mg PO DAILY 05/05/22 [History] Buspirone HCl 5 mg [Buspar 5 mg] 15 mg PO BID 05/05/22 [History] Citalopram Hydrobromide [Celexa] 40 mg PO DAILY 01/12/23 [History] Lisdexamfetamine Dimesylate [Vyvanse] 50 mg PO DAILY 01/12/23 [History] Metformin HCl 500 mg [Glucophage 500 MG] 500 mg PO DAILY 01/12/23 [History] Montelukast Sodium 10 mg [Singulair 10 MG] 10 mg PO DAILY 01/12/23 [History] Tirzepatide [Mounjaro] 12.5 mg SQ UD 01/12/23 [History] clonazePAM [Clonazepam] 0.5 mg PO BID 01/12/23 [History] Levothyroxine Sodium [Synthroid] 1 tab PO DAILY 03/27/23 [History] Hx Tetanus, Diphtheria Vaccination/Date Given: Yes Hx Influenza Vaccination/Date Given: No Hx Pneumococcal Vaccination/Date Given: No Immunizations Up to Date: Yes Travel Risk - International Travel Have you traveled outside of the country in past 3 weeks: No - Coronavirus Screening Are you exhibiting any of the following symptoms?: Yes Symptoms: Vomiting/Diarrhea Close contact with a COVID-19 positive Pt in past 14-21 Days: No - Vaccine Status Have you recieved a Covid-19 vaccination: No [employer]: Moderna - Vaccination Dates Date of 2cond Vaccination (if applicable): mar 2021 - Review of Systems Constitutional: No Symptoms, No Fever, No Chills Eyes: No Symptoms Ears, Nose, & Throat: No Symptoms Respiratory: No Symptoms, No Cough, No Dyspnea Cardiac: No Symptoms, No Chest Pain, No Edema, No Syncope Abdominal/Gastrointestinal: No Symptoms, No Abdominal Pain, No Nausea, No Vomiting, No Diarrhea Genitourinary Symptoms: No Symptoms, No Dysuria Musculoskeletal: No Symptoms, No Back Pain, No Neck Pain Skin: No Symptoms, No Rash Neurological: No Symptoms, No Dizziness, No Focal Weakness, No Sensory Changes Psychological: No Symptoms Endocrine: No Symptoms Hematologic/Lymphatic: No Symptoms Immunological/Allergic: No Symptoms All Other Systems: Reviewed and Negative - Past Medical History Pertinent Past Medical History: Yes Neurological History: No Pertinent History ENT History: No Pertinent History Cardiac History: No Pertinent History Respiratory History: Bronchitis, Sleep Apnea Endocrine Medical History: Diabetes Type II Musculoskeletal History: No Pertinent History Psycho-Social History: Anxiety, Attention Deficit Disorder, Depression Other Medical History: Hodgkins Lymphoma in remission since March 2022 - Past Surgical History Past Surgical History: Yes Neuro Surgical History: No Pertinent History Cardiac: No Pertinent History Respiratory: No Pertinent History Gastrointestinal: No Pertinent History Genitourinary: No Pertinent History Musculoskeletal: No Pertinent History Female Surgical History: No Pertinent History Other Surgical History: cyst removal, port placement X 3 - Social History Smoking Status: Never smoker Exposure to second hand smoke: Yes Drug Use: none Patient Lives Alone: No Significant Family History: no pertinent family hx - Female History Hx Last Menstrual Period: 02/22/23 Hx Now: No - Nursing Vital Signs Nursing Vital Signs: Initial Vital Signs Blood Pressure 106/47 03/27/23 20:06 O2 Sat by Pulse Oximetry 94 L 03/27/23 20:06 Pain Scale Pain Intensity 5 - Physical Exam General Appearance: no apparent distress, alert Eye Exam: PERRL/EOMI, eyes nml inspection Ears, Nose, Throat Exam: normal ENT inspection, TMs normal, pharynx normal, moist mucous membranes Neck Exam: normal inspection, non-tender, supple, full range of motion Respiratory Exam: normal breath sounds, lungs clear, airway intact, No respiratory distress Cardiovascular Exam: regular rate/rhythm, normal heart sounds, normal peripheral pulses Gastrointestinal/Abdomen Exam: soft, normal bowel sounds, No tenderness, No mass Back Exam: normal inspection, normal range of motion, No CVA tenderness, No vertebral tenderness Extremity Exam: normal inspection, normal range of motion, pelvis stable Neurologic Exam: alert, oriented x 3, cooperative, normal mood/affect, nml cerebellar function, nml station & gait, sensation nml, No motor deficits Skin Exam: normal color, warm, dry, No rash Lymphatic Exam: No adenopathy SpO2 Interpretation: normal SpO2: 98 O2 Delivery: Room Air - Course Nursing assessment & vital signs reviewed: Yes Ordered Tests: Active Orders 24 hr Category Date Time Status [employer] STAT Care 03/27/23 20:47 Active IV Insertion STAT Care 03/27/23 20:46 Active Pulse Oximetry (ED) STAT Care 03/27/23 20:46 Active CBC W DIFF Stat Lab 03/27/23 21:09 Completed CMP Stat Lab 03/27/23 21:09 Completed TROPONIN Q4H Lab 03/27/23 21:09 Completed TROPONIN Q4H Lab 03/28/23 01:00 Ordered TROPONIN Q4H Lab 03/28/23 05:00 Ordered UA W/RFX UR CULTURE Stat Lab 03/27/23 21:12 Completed Medication Summary Discontinued Medications Generic Name Dose Route Start Last Admin Trade Name Freq PRN Reason Stop Dose Admin Sodium Chloride 1,000 mls @ 999 mls/hr 03/27/23 20:46 03/27/23 22:10 Sodium Chloride 0.9% 1000 Ml IV 03/27/23 21:46 Infused .Q1H1M STA Infusion Sodium Chloride Confirm 03/27/23 21:03 Sodium Chloride 0.9% 1000 Ml Administered 03/27/23 21:04 Dose 1,000 mls @ .ROUTE [facility] Lab/Rad Data: Laboratory Result Diagrams 03/27/23 21:09 03/27/23 21:09 Laboratory Results 03/27/23 03/27/23 03/27/23 Range/Units 21:12 21:09 21:09 WBC (4.0-10.5) x10^3/uL RBC (4.1-5.4) x10^6/uL Hgb (12.0-16.0) g/dL Hct (35-47) % MCV (78-100) fL MCH (26-32) pg MCHC (32-36) g/dL RDW (11.5-14.0) % Plt Count (150-450) x10^3/uL MPV (7.5-11.0) fL Gran % (36.0-66.0) % Immature Gran % (Auto) (0.00-0.4) % Nucleat RBC Rel Count (0.00-0.1) % Eos # (Auto) (0-0.5) x10^3/uL Immature Gran # (Auto) (0.00-0.03) x10^3u/L Absolute Lymphs (auto) (1.0-4.6) x10^3/uL Absolute Monos (auto) (0.0-1.3) x10^3/uL Absolute Nucleated RBC (0.00-0.01) x10^3u/L Lymphocytes % (24.0-44.0) % Monocytes % (0.0-12.0) % Eosinophils % (0.00-5.0) % Basophils % (0.0-0.4) % Absolute Granulocytes (1.4-6.9) x10^3/uL Basophils # (0-0.4) x10^3/uL Sodium 139 (137-145) mmol/L Potassium 3.9 (3.5-5.1) mmol/L Chloride 101 (98-107) mmol/L Carbon Dioxide 28 (22-30) mmol/L Anion Gap 14.0 (5-15) MEQ/L BUN 12 (7-17) mg/dL Creatinine 1.01 (0.52-1.04) mg/dL Estimated GFR > 60.0 ML/MIN Glucose 77 (74-106) mg/dL Calcium 9.3 (8.4-10.2) mg/dL Total Bilirubin 0.30 (0.2-1.3) mg/dL AST 22 (14-36) U/L ALT 18 (0-35) U/L Alkaline Phosphatase 112 (38-126) U/L Troponin I < 0.012 (0.000-0.034) ng/mL Serum Total Protein 7.5 (6.3-8.2) g/dL Albumin 4.3 (3.5-5.0) g/dL Urine Color Yellow (Yellow) Urine Appearance Clear (Clear) Urine pH 5.5 (4.6-8.0) Ur Specific [place] <=1.005 (1.005-1.030) Urine Protein Negative (Negative) Urine Glucose (UA) Negative (Negative) mg/dL Urine Ketones Negative (Negative) Urine Blood Negative (Negative) Urine Nitrite Negative (Negative) Urine Bilirubin Negative (Negative) Urine Urobilinogen 0.2 (0.2) mg/dL Ur Leukocyte Esterase Negative (Negative) U Hyaline Cast (Auto) NONE SEEN (0-2) /LPF Urine Microscopic RBC 0-2 (0-5) /HPF Urine Microscopic WBC 0-2 (0-5) /HPF Ur Epithelial Cells None Seen (None Seen) /HPF Urine Bacteria None Seen (None Seen) /HPF Urine Culture Reflexed NO (NO) 03/27/23 Range/Units 21:09 WBC 9.1 (4.0-10.5) x10^3/uL RBC 4.99 (4.1-5.4) x10^6/uL Hgb 14.8 (12.0-16.0) g/dL Hct 45.3 (35-47) % MCV 90.8 (78-100) fL MCH 29.7 (26-32) pg MCHC 32.7 (32-36) g/dL RDW 13.8 (11.5-14.0) % Plt Count 223 (150-450) x10^3/uL MPV 10.0 (7.5-11.0) fL Gran % 67.2 H (36.0-66.0) % Immature Gran % (Auto) 0.2 (0.00-0.4) % Nucleat RBC Rel Count 0.0 (0.00-0.1) % Eos # (Auto) 0.36 (0-0.5) x10^3/uL Immature Gran # (Auto) 0.02 (0.00-0.03) x10^3u/L Absolute Lymphs (auto) 2.13 (1.0-4.6) x10^3/uL Absolute Monos (auto) 0.40 (0.0-1.3) x10^3/uL Absolute Nucleated RBC 0.00 (0.00-0.01) x10^3u/L Lymphocytes % 23.5 L (24.0-44.0) % Monocytes % 4.4 (0.0-12.0) % Eosinophils % 4.0 (0.00-5.0) % Basophils % 0.7 (0.0-0.4) % Absolute Granulocytes 6.09 (1.4-6.9) x10^3/uL Basophils # 0.06 (0-0.4) x10^3/uL Sodium (137-145) mmol/L Potassium (3.5-5.1) mmol/L Chloride (98-107) mmol/L Carbon Dioxide (22-30) mmol/L Anion Gap (5-15) MEQ/L BUN (7-17) mg/dL Creatinine (0.52-1.04) mg/dL Estimated GFR ML/MIN Glucose (74-106) mg/dL Calcium (8.4-10.2) mg/dL Total Bilirubin (0.2-1.3) mg/dL AST (14-36) U/L ALT (0-35) U/L Alkaline Phosphatase (38-126) U/L Troponin I (0.000-0.034) ng/mL Serum Total Protein (6.3-8.2) g/dL Albumin (3.5-5.0) g/dL Urine Color (Yellow) Urine Appearance (Clear) Urine pH (4.6-8.0) Ur Specific [place] (1.005-1.030) Urine Protein (Negative) Urine Glucose (UA) (Negative) mg/dL Urine Ketones (Negative) Urine Blood (Negative) Urine Nitrite (Negative) Urine Bilirubin (Negative) Urine Urobilinogen (0.2) mg/dL Ur Leukocyte Esterase (Negative) U Hyaline Cast (Auto) (0-2) /LPF Urine Microscopic RBC (0-5) /HPF Urine Microscopic WBC (0-5) /HPF Ur Epithelial Cells (None Seen) /HPF Urine Bacteria (None Seen) /HPF Urine Culture Reflexed (NO) - Progress Progress: improved Progress Note: 03/27/23 22:18 Patient is a 28-year-old female with a history of stage III Hodgkin's lymphoma in remission for the last 11 months presents to our ED for evaluation of fatigue. Patient has been experiencing diarrhea over the past couple days and feels she may be dehydrated. Patient had 2 episodes of diarrhea today coupled with nausea. No active nausea at this time. No vomiting. Patient's symptoms are constant. No specific worsening or improving factors. Symptoms are moderate in intensity. Patient otherwise feels well. She voices no other complaints or concerns at this time. Portions of this note were created with voice recognition technology. There may be grammatical, spelling, punctuation or sound alike errors Complexity of problem addressed is moderate acute complicated No critical care time Complex of data reviewed and analyzed is moderate. Test ordered. Test reviewed and analyzed. Clinical correlation made between findings and history and physical examination. Risk of complication and or risk morbidity/mortality of patient management is moderate. Patient will be discharged home with a Holter monitor for further evaluation Patient will be discharged home with a 48-hour Holter monitor. Vital stable. Blood pressure responded to IV fluids. Patient is no longer hypotensive in our ED. Time spent to discharge patient is approximately 15 minutes. Plan of care established for shared decision making. No social determinants of health present to impede follow-up. Patient voices no other complaints or concerns at this time. Portions of this note were created with voice recognition technology. There may be grammatical, spelling, punctuation or sound alike errors Counseled pt/family regarding: lab results, diagnosis, need for follow-up - Departure Departure Disposition: Home Clinical Impression: Encounter for medical screening examination, Fatigue, Diarrhea Condition: Stable Critical Care Time: No Referrals: RAJ CHANEY MD [Primary Care Provider] - Follow up/PCP as directed Instructions: Dehydration, Adult (DC) Additional Instructions: Discharge/Care Plan MELISSA CLARK was seen on 03/27/23 in the Emergency Room. The patient was counseled regarding Diagnosis,Lab results, Imaging studies, need for follow up and when to return to the Emergency Room. Prescriptions given: Discharge Note I have spoken with the patient and/or caregivers. I have explained the patient's condition, diagnosis and treatment plan based on the information available to me at this time. I have answered the patient's and/or caregiver's questions and addressed any concerns. The patient and/or caregivers have as good understanding of the patient's diagnosis, condition and treatment plan as can be expected at this point. The vital signs have been stable. The patient's condition is stable and appropriate for discharge from the emergency department. The patient will pursue further outpatient evaluation with the primary care physician or other designated or consulting physician as outlined in the dischar ge instructions. The patient and/or caregivers are agreeable to this plan of care and follow-up instructions have been explained in detail. The patient and/or caregivers have received these instruction. The patient/and or caregivers are aware that any significant change in condition or worsening of symptoms should prompt an immediate return to this or the closest emergency department or call 911.
[2023-03-27 21:13] LABS: Absolute Neutrophil Ct (ANC) 6.09 x10^3/uL (1.4-6.9); BASOPHIL % 0.7 % (0.0-0.4); Basophil (Absolute #) 0.06 x10^3/uL (0-0.4); Eosinophil (Absolute #) 0.36 x10^3/uL (0-0.5); Hematocrit 45.3 % (35-47); Hemoglobin 14.8 g/dL (12.0-16.0); IMMATURE GRAN # 0.02 x10^3u/L (0.00-0.03); IMMATURE GRAN % 0.2 % (0.00-0.4); Lymphocyte (Absolute #) 2.13 x10^3/uL (1.0-4.6); Lymphocytes % 23.5 % (24.0-44.0); Mean Cell Volume 90.8 fL (78-100); Mean Corpuscular Hemoglobin 29.7 pg (26-32); Mean Corpuscular Hgb Concent. 32.7 g/dL (32-36); Monocytes % 4.4 % (0.0-12.0); Neutrophil % 67.2 % (36.0-66.0); Platelet Count 223 x10^3/uL (150-450); Red Blood Count 4.99 x10^6/uL (4.1-5.4); Red Cell Distribution Width 13.8 % (11.5-14.0); White Blood Count 9.1 x10^3/uL (4.0-10.5)
[2023-03-27 21:21] LABS: ALBUMIN 4.3 g/dL (3.5-5.0); ALKALINE PHOSPHATASE 112 U/L (38-126); BLOOD UREA NITROGEN 12 mg/dL (7-17); CHLORIDE 101 mmol/L (98-107); Calcium 9.3 mg/dL (8.4-10.2); Carbon Dioxide 28 mmol/L (22-30); Creatinine 1 1.01 mg/dL (0.52-1.04); EST GLOMERULAR FILTRATION RATE > 60.0 ML/MIN; Glucose 77 mg/dL (74-106); Potassium 3.9 mmol/L (3.5-5.1); SGOT/AST 22 U/L (14-36); SGPT/ALT 18 U/L (0-35); SODIUM 139 mmol/L (137-145); Total Protein 7.5 g/dL (6.3-8.2)
[2023-03-27 21:25] LABS: Bacteria None Seen /HPF (None Seen); Epithelial Cells None Seen /HPF (None Seen); Hyaline Casts NONE SEEN /LPF (0-2); RBC 0-2 /HPF (0-5); WBC 0-2 /HPF (0-5)
[2023-03-27 21:30] LABS: Appearance Clear (Clear); Bilirubin Negative (Negative); Blood Negative (Negative); Glucose, Urine Negative (Negative); Ketones Negative (Negative); Leukocyte Esterase Negative (Negative); Nitrite Negative (Negative); Ph 5.5 (4.6-8.0); Protein,Urine Dip Negative (Negative); Specific Gravity <=1.005 (1.005-1.030); Urobilinogen 0.2 mg/dL (0.2)
[2023-03-27 21:33] LABS: ADD URINE CULTURE? NO (NO)
[2023-03-27 22:03] VITALS: BP 111/56; PULSE 94; RESP 20
[2023-03-27 22:09] VITALS: O2SAT 98
== END 2023-03-27 22:26 | disposition home or self-care (01) ==
LOC: ED 19:51
DX: Z00.00 Encounter for general adult medical examination without abnormal findings (principal); R53.83 Other fatigue; R19.7 Diarrhea, unspecified; R11.0 Nausea; E11.9 Type 2 diabetes mellitus without complications; Z79.84 Long term (current) use of oral hypoglycemic drugs; Z79.85 Long-term (current) use of injectable non-insulin antidiabetic drugs; Z79.899 Other long term (current) drug therapy; Z85.71 Personal history of Hodgkin lymphoma
CPT/HCPCS: 36000; 36415; 80053; 81001; 84484; 85025; 93041; 94760; 96360; 99284

== ENCOUNTER 2023-07-07 19:51 | Emergency (ER) | payer OTHER ==
--- NOTE | 2023-07-07 20:05 | ERPHSYRPT ---
- History of Present Illness Time Seen by Provider: 07/07/23 20:04 Source: patient, family Exam Limitations: no limitations Physician History: pt has been treated for ear infections recently including second round of antibiotics but still with symptoms and came in. Pt was in waiting room several minutes and I saw her as soon as she was in a room. Pt also is in remission for Hodgkins after chemo 14 months ago and recent checkup is good with good labs reported by pt 2 weeks ago. Swollowing OK in ER . No N or V or fevers. Left sided nodes recently but not palpable by me today. Discussed risks/benefits of labs / CT/ in ER with pt and she prefers to see her Drs. in F/U which I also advised because of hx of Nodes and prior Hodgkins, rather than labs/ imaging here tonight. She understands that this may be more than just an ear infection and need for that f/u. TMs are red with fluid bilaterally, but again lymphatic swelling may contribute to this. She has the capacity and normal mental status to make this choice. Discussed also risks/benefits of AB and Omnicef and she has tolerated keflex recently ( although as child may have had rash to ceclor) on her same other meds and wishes to proceed. The interactions from septra and e mycins with her meds were a concern at this time with me and pt so in shared decision making she prefers to go with another cephalosporin and has the capacity to make this choice which may still have a risk of allergy ( slightly different drug) although these have been recently tolerated without problems for her. Pt now also reports 4 days of diarrhea no abd pain ( except for cramping with the diarrhea) and has had similar symptoms and tiredness. before requiring IVF and wishes to try this now. discussed risks/benefits and pts wishes to try IVF, UA , T4, TSH, CBC,CMP, Lactate, and AB flagyl for diarrhea. and has the capacity to make this choice. Timing/Duration: gradual onset, weeks Severity: moderate ENT Location: ear (R), ear (L), throat Prearrival Treatment: prescription meds Modifying Factors: Improves With: nothing Associated Symptoms: ear pain (R), ear pain (L), swollen glands, sore throat, No cough, No fever Allergies/Adverse Reactions: amoxicillin Allergy (Intermediate, Verified 03/27/23 20:02) Rash cefaclor [From [facility]] Allergy (Intermediate, Verified 03/27/23 20:02) Rash Home Medications: Amitriptyline HCl 25 mg [Amitriptyline 25 mg Tablet] 100 mg PO DAILY 05/05/22 [History] Buspirone HCl 5 mg [Buspar 5 mg] 15 mg PO BID 05/05/22 [History] Citalopram Hydrobromide [Celexa] 40 mg PO DAILY 01/12/23 [History] Lisdexamfetamine Dimesylate [Vyvanse] 50 mg PO DAILY 01/12/23 [History] Metformin HCl 500 mg [Glucophage 500 MG] 500 mg PO DAILY 01/12/23 [History] Tirzepatide [Mounjaro] 12.5 mg SQ UD 01/12/23 [History] clonazePAM [Clonazepam] 1 mg PO DAILY 01/12/23 [History] Levothyroxine Sodium 25 Mcg [Synthroid 25 Mcg] 25 mcg PO DAILY 07/07/23 [History] Hx Tetanus, Diphtheria Vaccination/Date Given: Yes Hx Influenza Vaccination/Date Given: No Hx Pneumococcal Vaccination/Date Given: No Travel Risk - Vaccine Status Have you recieved a Covid-19 vaccination: No Sonar Watchstander: Moderna - Vaccination Dates Date of 2cond Vaccination (if applicable): mar 2021 - Review of Systems Constitutional: No Fever, No Chills Eyes: No Symptoms Ears, Nose, & Throat: Ear Pain, Throat Pain Respiratory: No Cough, No Dyspnea Cardiac: No Chest Pain, No Edema, No Syncope Abdominal/Gastrointestinal: Nausea, Diarrhea, No Abdominal Pain, No Vomiting Genitourinary Symptoms: No Dysuria Musculoskeletal: No Symptoms, No Back Pain, No Neck Pain Skin: No Symptoms, No Rash Neurological: No Symptoms, No Dizziness, No Focal Weakness, No Sensory Changes Psychological: No Symptoms Endocrine: No Symptoms Hematologic/Lymphatic: No Symptoms Immunological/Allergic: No Symptoms All Other Systems: Reviewed and Negative - Past Medical History Pertinent Past Medical History: Yes Neurological History: No Pertinent History ENT History: No Pertinent History Cardiac History: No Pertinent History Respiratory History: Bronchitis, Sleep Apnea Endocrine Medical History: Diabetes Type II Musculoskeletal History: No Pertinent History Psycho-Social History: Anxiety, Attention Deficit Disorder, Depression Other Medical History: Hodgkins Lymphoma in remission since March 2022 - Past Surgical History Past Surgical History: Yes Neuro Surgical History: No Pertinent History Cardiac: No Pertinent History Respiratory: No Pertinent History Gastrointestinal: No Pertinent History Genitourinary: No Pertinent History Musculoskeletal: No Pertinent History Female Surgical History: No Pertinent History Other Surgical History: cyst removal, port placement X 3 - Social History Smoking Status: Never smoker Exposure to second hand smoke: Yes Drug Use: none Patient Lives Alone: No Significant Family History: no pertinent family hx - Nursing Vital Signs Nursing Vital Signs: Initial Vital Signs Temperature 97.6 F 07/07/23 20:05 Pulse Rate 87 07/07/23 20:05 Respiratory Rate 18 07/07/23 20:05 Blood Pressure 99/66 07/07/23 20:05 O2 Sat by Pulse Oximetry 98 07/07/23 20:05 Pain Scale Pain Intensity 3 - Physical Exam General Appearance: no apparent distress, alert Eye Exam: bilateral eye: PERRL, EOMI Ear Exam: bilateral ear: auricle normal, canal normal, TM red, TM bulging Nasal Exam: normal inspection Throat Exam: pharynx normal, moist mucus membranes, No tonsillar exudate Neck Exam: normal inspection, supple, full range of motion, trachea midline, No stiff neck, No meningismus Cardiovascular/Respiratory Exam: chest non-tender, normal breath sounds, regular rate/rhythm, heart sounds normal, no JVD, no respiratory distress, No subcutaneous emphysema, No crepitus, No JVD, No decreased breath sounds, No paradoxical movements Abdominal Exam: non-tender, soft Neurologic Exam: alert, oriented x 3, cooperative, motorcycle 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 II-XII nml as tested, normal mood/affect, nml cerebellar function, nml station & gait, sensation nml, No motor deficits Skin Exam: normal color, warm, dry, No rash SpO2 Interpretation: normal SpO2: 98 O2 Delivery: Room Air - Course Nursing assessment & vital signs reviewed: Yes Ordered Tests: Active Orders 24 hr Category Date Time Status IV Insertion STAT Care 07/07/23 21:04 Active CBC W DIFF Stat Lab 07/07/23 21:10 Completed CMP Stat Lab 07/07/23 21:10 Completed HCG QUALITATIVE, SERUM Stat Lab 07/07/23 21:10 Completed Lactic Acid Stat Lab 07/07/23 21:10 Completed POCT GLUCOSE Stat Lab 07/07/23 22:18 Completed T4 (Thyroxine) Stat Lab 07/07/23 21:10 Completed TSH [TSH, 3RD Generation] Stat Lab 07/07/23 21:10 Completed UA W/RFX UR CULTURE Stat Lab 07/07/23 23:37 Completed Medication Summary Discontinued Medications Generic Name Dose Route Start Last Admin Trade Name Frankie PRN Reason Stop Dose Admin Sodium Chloride 1,000 mls @ 999 mls/hr 07/07/23 21:04 07/07/23 22:26 Sodium Chloride 0.9% 1000 Ml IV 07/07/23 22:04 Infused .Q1H1M STA Infusion Metronidazole 500 mg in 100 mls @ 200 mls/hr 07/07/23 21:06 07/07/23 22:22 Flagyl 500 Mg Ivpb IV 07/07/23 21:35 Infused STAT STA Infusion Sodium Chloride Confirm 07/07/23 21:15 Sodium Chloride 0.9% 1000 Ml Administered 07/07/23 21:16 Dose 1,000 mls @ ud .ROUTE .STK-MED ONE Metronidazole Confirm 07/07/23 21:16 Flagyl 500 Mg Ivpb Administered 07/07/23 21:17 Dose 500 mg in 100 mls @ ud IV .STK-MED ONE Lab/Rad Data: Laboratory Result Diagrams 07/07/23 21:10 07/07/23 21:10 Laboratory Results 07/07/23 07/07/23 07/07/23 Range/Units 23:37 22:18 21:10 WBC (4.0-10.5) x10^3/uL RBC (4.1-5.4) x10^6/uL Hgb (12.0-16.0) g/dL Hct (35-47) % MCV (78-100) fL MCH (26-32) pg MCHC (32-36) g/dL RDW (11.5-14.0) % Plt Count (150-450) x10^3/uL MPV (7.5-11.0) fL Gran % (36.0-66.0) % Immature Gran % (Auto) (0.00-0.4) % Nucleat RBC Rel Count (0.00-0.1) % Eos # (Auto) (0-0.5) x10^3/uL Immature Gran # (Auto) (0.00-0.03) x10^3u/L Absolute Lymphs (auto) (1.0-4.6) x10^3/uL Absolute Monos (auto) (0.0-1.3) x10^3/uL Absolute Nucleated RBC (0.00-0.01) x10^3u/L Lymphocytes % (24.0-44.0) % Monocytes % (0.0-12.0) % Eosinophils % (0.00-5.0) % Basophils % (0.0-0.4) % Absolute Granulocytes (1.4-6.9) x10^3/uL Basophils # (0-0.4) x10^3/uL Sodium (137-145) mmol/L Potassium (3.5-5.1) mmol/L Chloride (98-107) mmol/L Carbon Dioxide (22-30) mmol/L Anion Gap (5-15) MEQ/L BUN (7-17) mg/dL Creatinine (0.52-1.04) mg/dL Estimated GFR ML/MIN Glucose (74-106) mg/dL POC Glucometer 86 (74 to 106) mg/dL Lactic Acid (0.4-2.0) Calcium (8.4-10.2) mg/dL Total Bilirubin (0.2-1.3) mg/dL AST (14-36) U/L ALT (0-35) U/L Alkaline Phosphatase (38-126) U/L Serum Total Protein (6.3-8.2) g/dL Albumin (3.5-5.0) g/dL Thyroxine (T4) 9.81 (5.53-10.96) ug/dL TSH 3rd Generation 2.640 (0.47-4.68) mIU/L Serum HCG, Qual (NEGATIVE) Urine Color Yellow (Yellow) Urine Appearance Clear (Clear) Urine pH 5.0 (4.6-8.0) Ur Specific [place] 1.010 (1.005-1.030) Urine Protein Negative (Negative) Urine Glucose (UA) Negative (Negative) mg/dL Urine Ketones Negative (Negative) Urine Blood Large A (Negative) Urine Nitrite Negative (Negative) Urine Bilirubin Negative (Negative) Urine Urobilinogen 0.2 (0.2) mg/dL Ur Leukocyte Esterase Trace A (Negative) U Hyaline Cast (Auto) NONE SEEN (0-2) /LPF Urine Microscopic RBC 3-5 (0-5) /HPF Urine Microscopic WBC 6-10 A (0-5) /HPF Ur Epithelial Cells Few (None Seen) /HPF Urine Bacteria None Seen (None Seen) /HPF Urine Culture Reflexed NO (NO) 07/07/23 07/07/23 07/07/23 Range/Units 21:10 21:10 21:10 WBC (4.0-10.5) x10^3/uL RBC (4.1-5.4) x10^6/uL Hgb (12.0-16.0) g/dL Hct (35-47) % MCV (78-100) fL MCH (26-32) pg MCHC (32-36) g/dL RDW (11.5-14.0) % Plt Count (150-450) x10^3/uL MPV (7.5-11.0) fL Gran % (36.0-66.0) % Immature Gran % (Auto) (0.00-0.4) % Nucleat RBC Rel Count (0.00-0.1) % Eos # (Auto) (0-0.5) x10^3/uL Immature Gran # (Auto) (0.00-0.03) x10^3u/L Absolute Lymphs (auto) (1.0-4.6) x10^3/uL Absolute Monos (auto) (0.0-1.3) x10^3/uL Absolute Nucleated RBC (0.00-0.01) x10^3u/L Lymphocytes % (24.0-44.0) % Monocytes % (0.0-12.0) % Eosinophils % (0.00-5.0) % Basophils % (0.0-0.4) % Absolute Granulocytes (1.4-6.9) x10^3/uL Basophils # (0-0.4) x10^3/uL Sodium 138 (137-145) mmol/L Potassium 3.5 (3.5-5.1) mmol/L Chloride 102 (98-107) mmol/L Carbon Dioxide 26 (22-30) mmol/L Anion Gap 13.9 (5-15) MEQ/L BUN 19 H (7-17) mg/dL Creatinine 0.94 (0.52-1.04) mg/dL Estimated GFR 84.2 ML/MIN Glucose 49 L* (74-106) mg/dL POC Glucometer (74 to 106) mg/dL Lactic Acid 0.6 (0.4-2.0) Calcium 9.6 (8.4-10.2) mg/dL Total Bilirubin 0.40 (0.2-1.3) mg/dL AST 23 (14-36) U/L ALT 15 (0-35) U/L Alkaline Phosphatase 105 (38-126) U/L Serum Total Protein 8.4 H (6.3-8.2) g/dL Albumin 4.5 (3.5-5.0) g/dL Thyroxine (T4) (5.53-10.96) ug/dL TSH 3rd Generation (0.47-4.68) mIU/L Serum HCG, Qual NEGATIVE (NEGATIVE) Urine Color (Yellow) Urine Appearance (Clear) Urine pH (4.6-8.0) Ur Specific [place] (1.005-1.030) Urine Protein (Negative) Urine Glucose (UA) (Negative) mg/dL Urine Ketones (Negative) Urine Blood (Negative) Urine Nitrite (Negative) Urine Bilirubin (Negative) Urine Urobilinogen (0.2) mg/dL Ur Leukocyte Esterase (Negative) U Hyaline Cast (Auto) (0-2) /LPF Urine Microscopic RBC (0-5) /HPF Urine Microscopic WBC (0-5) /HPF Ur Epithelial Cells (None Seen) /HPF Urine Bacteria (None Seen) /HPF Urine Culture Reflexed (NO) 07/07/23 Range/Units 21:10 WBC 9.0 (4.0-10.5) x10^3/uL RBC 5.09 (4.1-5.4) x10^6/uL Hgb 14.6 (12.0-16.0) g/dL Hct 45.9 (35-47) % MCV 90.2 (78-100) fL MCH 28.7 (26-32) pg MCHC 31.8 L (32-36) g/dL RDW 13.5 (11.5-14.0) % Plt Count 263 (150-450) x10^3/uL MPV 10.2 (7.5-11.0) fL Gran % 63.6 (36.0-66.0) % Immature Gran % (Auto) 0.2 (0.00-0.4) % Nucleat RBC Rel Count 0.0 (0.00-0.1) % Eos # (Auto) 0.25 (0-0.5) x10^3/uL Immature Gran # (Auto) 0.02 (0.00-0.03) x10^3u/L Absolute Lymphs (auto) 2.49 (1.0-4.6) x10^3/uL Absolute Monos (auto) 0.44 (0.0-1.3) x10^3/uL Absolute Nucleated RBC 0.00 (0.00-0.01) x10^3u/L Lymphocytes % 27.8 (24.0-44.0) % Monocytes % 4.9 (0.0-12.0) % Eosinophils % 2.8 (0.00-5.0) % Basophils % 0.7 (0.0-0.4) % Absolute Granulocytes 5.71 (1.4-6.9) x10^3/uL Basophils # 0.06 (0-0.4) x10^3/uL Sodium (137-145) mmol/L Potassium (3.5-5.1) mmol/L Chloride (98-107) mmol/L Carbon Dioxide (22-30) mmol/L Anion Gap (5-15) MEQ/L BUN (7-17) mg/dL Creatinine (0.52-1.04) mg/dL Estimated GFR ML/MIN Glucose (74-106) mg/dL POC Glucometer (74 to 106) mg/dL Lactic Acid (0.4-2.0) Calcium (8.4-10.2) mg/dL Total Bilirubin (0.2-1.3) mg/dL AST (14-36) U/L ALT (0-35) U/L Alkaline Phosphatase (38-126) U/L Serum Total Protein (6.3-8.2) g/dL Albumin (3.5-5.0) g/dL Thyroxine (T4) (5.53-10.96) ug/dL TSH 3rd Generation (0.47-4.68) mIU/L Serum HCG, Qual (NEGATIVE) Urine Color (Yellow) Urine Appearance (Clear) Urine pH (4.6-8.0) Ur Specific [place] (1.005-1.030) Urine Protein (Negative) Urine Glucose (UA) (Negative) mg/dL Urine Ketones (Negative) Urine Blood (Negative) Urine Nitrite (Negative) Urine Bilirubin (Negative) Urine Urobilinogen (0.2) mg/dL Ur Leukocyte Esterase (Negative) U Hyaline Cast (Auto) (0-2) /LPF Urine Microscopic RBC (0-5) /HPF Urine Microscopic WBC (0-5) /HPF Ur Epithelial Cells (None Seen) /HPF Urine Bacteria (None Seen) /HPF Urine Culture Reflexed (NO) - Progress Progress: improved, re-examined Progress Note: 07/08/23 01:10 pt feels better after rehydration and is ivan PO well in ER. I explained that we have not yet determined a cause for her symptoms and of the need to see her Drs. in followup especially with the Hx for Hodgkins to rule out recurrence. She prefers outpt f/u rather than further workup in ER including imaging( after discussion of risks/benefits) or in hospital and has the capacity to make this choice. 07/08/23 01:12 Counseled pt/family regarding: diagnosis, need for follow-up Medical Desision Making - Discussion of managment Reviewed:: Need for additional workup Agreed on:: Treatment plan, need for follow-up - Diagnostic Testing Diagnostic test were ordered, analyzed, and reviewed by me: No - Risk of complications The pt has a mod risk of morbidity or mortality based on: Need for prescription drug management - Departure Departure Disposition: Home Clinical Impression: Bilateral otitis media with effusion, Hx Hodkins with Hx throat/ENT symptoms, Diarrhea, UTI (urinary tract infection) Condition: Good Critical Care Time: No Referrals: RAJ CHANEY MD [Primary Care Provider] - Follow up/PCP as directed Instructions: Hodgkin lymphoma in adults, Diarrhea and Traveler's Diarrhea, Adult (DC), Ear Infections in Adults (DC), Urinary Tract Infection, Adult (DC) Additional Instructions: We have not determined a precise cause for your symptoms, even though urinary tract infection, and ear infection were found , and infectious diarrhea may explain some of your symptoms. Therefore further followup with your DrDomenico is important as well as because the history of throat and lymph gland symptoms may indicate a Hodgkins concern. Return meantime if vomiting, fever, trouble swallowing, abdominal pain, or not improving. Prescriptions: Cefdinir 300 mg PO BID #20 cap Metronidazole 500 mg [Flagyl 500 MG] 500 mg PO TID #30 tablet
[2023-07-07 20:07] VITALS: TEMP 97.6
[2023-07-07] MEDS ORDERED: Sodium Chloride 0.9% 1000 ML 1,000 ML IV STA (21:04)
[2023-07-07] MEDS ORDERED: FLAGYL 500 MG IVPB 500 MG/100 ML BAG IV STA (21:06)
[2023-07-07] MEDS ORDERED: Sodium Chloride 0.9% 1000 ML 1,000 ML ONE (21:15)
[2023-07-07] MEDS ORDERED: FLAGYL 500 MG IVPB 500 MG/100 ML BAG IV ONE (21:16)
[2023-07-07 21:17] LABS: Absolute Neutrophil Ct (ANC) 5.71 x10^3/uL (1.4-6.9); BASOPHIL % 0.7 % (0.0-0.4); Basophil (Absolute #) 0.06 x10^3/uL (0-0.4); Eosinophil % 2.8 % (0.00-5.0); Eosinophil (Absolute #) 0.25 x10^3/uL (0-0.5); Hematocrit 45.9 % (35-47); Hemoglobin 14.6 g/dL (12.0-16.0); IMMATURE GRAN # 0.02 x10^3u/L (0.00-0.03); IMMATURE GRAN % 0.2 % (0.00-0.4); Lymphocyte (Absolute #) 2.49 x10^3/uL (1.0-4.6); Lymphocytes % 27.8 % (24.0-44.0); Mean Cell Volume 90.2 fL (78-100); Mean Corpuscular Hemoglobin 28.7 pg (26-32); Mean Corpuscular Hgb Concent. 31.8 g/dL (32-36); Mean Platelet Volume 10.2 fL (7.5-11.0); Monocyte (Absolute #) 0.44 x10^3/uL (0.0-1.3); Monocytes % 4.9 % (0.0-12.0); Neutrophil % 63.6 % (36.0-66.0); Platelet Count 263 x10^3/uL (150-450); Red Blood Count 5.09 x10^6/uL (4.1-5.4); Red Cell Distribution Width 13.5 % (11.5-14.0)
[2023-07-07 21:29] LABS: HCG SERUM TEST NEGATIVE (NEGATIVE)
[2023-07-07 21:31] LABS: ALBUMIN 4.5 g/dL (3.5-5.0); ANION GAP 13.9 MEQ/L (5-15); BILIRUBIN,TOTAL 0.4 mg/dL (0.2-1.3); Calcium 9.6 mg/dL (8.4-10.2); Creatinine 1 0.94 mg/dL (0.52-1.04); EST GLOMERULAR FILTRATION RATE 84.2 ML/MIN; Potassium 3.5 mmol/L (3.5-5.1); Total Protein 8.4 g/dL (6.3-8.2)
[2023-07-07 22:01] LABS: T4 (Thyroxine) 9.81 ug/dL (5.53-10.96); TSH, 3RD Generation 2.64 mIU/L (0.47-4.68)
[2023-07-07 23:46] LABS: Appearance Clear (Clear); Bacteria None Seen /HPF (None Seen); Bilirubin Negative (Negative); Blood Large (Negative); Epithelial Cells Few /HPF (None Seen); Glucose, Urine Negative (Negative); Hyaline Casts NONE SEEN /LPF (0-2); Ketones Negative (Negative); Leukocyte Esterase Trace (Negative); Nitrite Negative (Negative); Protein,Urine Dip Negative (Negative); Urobilinogen 0.2 mg/dL (0.2)
[2023-07-07 23:47] LABS: ADD URINE CULTURE? NO (NO)
[2023-07-08 01:32] VITALS: BP 87/44; PULSE 74; RESP 16; O2SAT 97
== END 2023-07-08 01:35 | disposition home or self-care (01) ==
LOC: ED 19:51
DX: H65.93 Unspecified nonsuppurative otitis media, bilateral (principal); N39.0 Urinary tract infection, site not specified; R19.7 Diarrhea, unspecified; Z85.71 Personal history of Hodgkin lymphoma; E11.9 Type 2 diabetes mellitus without complications; Z79.84 Long term (current) use of oral hypoglycemic drugs; Z79.85 Long-term (current) use of injectable non-insulin antidiabetic drugs; Z79.899 Other long term (current) drug therapy
CPT/HCPCS: 36000; 36415; 80053; 81001; 82947; 83605; 84436; 84443; 84703; 85025; 96365; 99284